=== PATIENT | male | born 1995 | race American Indian/Alaskan Native ===

== ENCOUNTER 2019-05-22 02:16 | Inpatient (IN) | payer SELFPAY ==
[~2019-05-22] VITALS: Ht 182.9 cm; Wt 111.1 kg
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
--- NOTE | 2019-05-22 06:08 | NUR ---
PT ARRIVED IN CCU AT 0500. COLLEGE DIRECTOR WAS RECOVERING PT HERE IN UNIT. PT AT THAT TIME AND AT THIS TIME IS STILL VERY SEDATED. V/S ARE WDL AND PT IS ON RA. ALL LOBES ARE DIMINISHED, ABD SOUNDS ARE VERY HYPOACTIVE, DRESSINGS ARE C/D/I, PT HAS SOME GENERALIZED BILATERAL ARM EDEMA. PT ALSO HAS SEVERAL BLISTERS PRESENT ON BOTH INNER HANDS. COLLEGE DIRECTOR NOEMI LEFT AT 0600, PT IS ABLE TO MAINTAIN HIS OWN AIRWAY. URINE TOX SCREEN NEEDS TO BE OBTAINED ONCE PT VOIDS. WILL CONTINUE TO MONITOR.
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
--- NOTE | 2019-05-22 07:30 | NUR ---
report recieved. PATIENT IS ASLEEP IN BED, NO DISTRESS NOTED.
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
--- NOTE | 2019-05-22 08:18 | NUR ---
Patient takes no chronic medications
--- NOTE | 2019-05-22 08:30 | NUR ---
DETECTIVES HERE TO INTERVIEW PATIENT.
--- NOTE | 2019-05-22 09:20 | NUR ---
ABD DRESSING REDRESSED WITH NON-ADHERENT PAD, 4X4, ABD. RIGHT ARM DRESSING REDRESSED WITH NON-ADHERENT DRESSING AND GAUZE. INCISION SITES ALL DRY AND INTACT, NO DRAINAGE NOTED.
--- NOTE | 2019-05-22 09:50 | NUR ---
DR. DAUGHERTY UPDATED ON PATIENT. PATIENT WAS TO BE MED-SURG PATIENT FROM ADMISSION. PATIENT WILL BE TRANSFERRED TO MED-SURG TODAY. MONITOR DC'D.
--- NOTE | 2019-05-22 10:00 | NUR ---
ATE YOGART. AMALIA NAUSEA.
--- NOTE | 2019-05-22 11:25 | NUR ---
SLEEPING, NO DISTRESS NOTED.
--- NOTE | 2019-05-22 11:55 | NUR ---
AMBULATED TO BR. STABLE ON FEET.
--- NOTE | 2019-05-22 12:10 | NUR ---
NORCO 2 GIVEN FOR C/O POST-OP ABD DISCOMFORT.
--- NOTE | 2019-05-22 13:40 | NUR ---
REPORT TO MED-SURG.
--- NOTE | 2019-05-22 13:50 | NUR ---
ambulated to med-surg [facility] by RN.
--- NOTE | 2019-05-22 14:00 | NUR ---
PATIENT AMBULATED FROM CCU TO UT WITH SBA. LR RUNNING AT 85 MLS/HR. ASSESSMENT COMPLETE. ABDOMINAL DRESSINGS ARE CLEAN, DRY, AND INTACT. VISUALIZED DRESSING ON UPPER RIGHT ARM, SUTURES IN PLACE. NO DRAINAGE OR DISCHARGE NOTED. PATIENT STATES PAIN OF 10/10 IN HIS ABDOMEN. PATIENT RECEIVING 5 MG NORCO Q4, NEXT DOSE DUE AT 1600.
--- NOTE | 2019-05-22 15:31 | NUR ---
FAMILY OF PATIENT IN TO VISIT. DISCUSSED SAFETY WITH FAMILY AND PATIENT AND NOT TO DISCUSS PATIENTS ADMISSION AT HOSPITAL TO FAMILY AND FRIENDS. PARENTS AND PATIENT AGREEABLE.
--- NOTE | 2019-05-22 16:28 | NUR ---
PATIENT STATES PAIN OF 7/10. 10 MG OF NORCO PROVIDED. PATIENT AMBULATES WITH ONE PERSON SBA TO TOILET WITH STEADY GAIT.
--- NOTE | 2019-05-22 18:28 | NUR ---
PATIENT AMBULATED TWICE AROUND UNIT. NO SOB OR LIGHTHEADEDNESS. DRESSINGS REMAIN CLEAN, DRY, AND INTACT. PATIENT AMBULATED BACK TO BED, SITTING IN HIGH FOWLERS POSITION. STATES HE FEELS HOT. NO TEMPERATURE, COLD CLOTH GIVEN. PATIENT DENIES ANY FURTHER NEEDS AT THIS TIME, CALL LIGHT WITHIN REACH.
--- NOTE | 2019-05-22 20:00 | NUR ---
RECEIVED REPORT FROM VERNELL HANNA. pt RESTING IN BED. NO REQUESTS AT THIS TIME. WHITEBOARD UPDATED. ASSESSMENT DONE. PAIN TOLERABLE 10/18. DRESSING CDI. VITALS DONE. WILL COME BACK TO AMBULATE pt LATER IN SHIFT. CALL LIGHT WITHIN REACH.
--- NOTE | 2019-05-22 21:47 | NUR ---
CALL LIGHT ON. pt UP TO TOILET TO VOID. AMBULATED AROUND UNIT X2. DENIES PASSING GAS AT THIS TIME. SETTLED IN BED. POSSESSIONS AND CALL LIGHT WITHIN REACH. NO FURTHER REQUESTS AT THIS TIME.
--- NOTE | 2019-05-22 23:52 | NUR ---
ROUNDED ON pt. RESTING WITH EYES CLOSED, RESPIRATIONS REGULAR AND UNLABORED. CALL LIGHT WITHIN REACH.
--- NOTE | 2019-05-23 02:11 | NUR ---
pt ASLEEP, WOKE WITH GENTLE SHAKE AND VOICE. ASSESSMENT DONE. DRESSINGS CDI. STITCHES ON RIGHT ARM WELL APPROXIMATED. REPORTED 8/10 PAIN. PRN MED GIVEN (SEE NOV). EDUCATED ON WHEN TO CALL FOR PAIN MANAGEMENT. pt REFUSED VOIDING AT THIS TIME. SL PER ORDER ON NOV. NO FURTHER REQUESTS. CALL LIGHT WITHIN REACH.
--- NOTE | 2019-05-23 03:49 | NUR ---
ROUNDED ON pt. RESTING WITH EYES CLOSED, RESPIRATIONS REGULAR AND UNLABORED. APPROVED VISITORS HAVE LEFT. CALL LIGHT WITHIN REACH.
--- NOTE | 2019-05-23 06:50 | NUR ---
AWOKE pt. VITALS AND I&O RECORDED. pt REPORTED 5/10 PAIN. PRN MED GIVEN (SEE MAR). BOWEL TONES ACTIVE. MD IN ROOM. REDRESSED ABD WOUNDS WITH NON ADHERENT AND MEDIPORE TAPE. RIGHT ARM LAC OPEN TO AIR. EDGES WELL APPROXIMATED.
--- NOTE | 2019-05-23 06:56 | NUR ---
pt RESTED ON AND OFF DURING SHIFT. VISITORS EARLY IN THE MORNING, RESTRICTED; MUST NOTIFY pt AND GET APPROVAL PRIOR TO ALLOWING VISITORS. TOLERATING FULL LIQUID DIET. IV SL. DRESSING ON MIDLINE INCISION AND LAC ON ABD. LAC ON RIGHT ARM OPEN TO AIR, EDGES WELL APPROXIMATED. PAIN CONTROLLED WITH PRN MEDS X2. AMBULATED X1. USES CALL LIGHT APPROPRIATLEY.
--- NOTE | 2019-05-23 07:39 | NUR ---
0723: BEDSIDE REPORT RECIEVED FROM ROSANNA MATT. THE PT IS LYING IN HIS BED AND STATES HIS PAIN IS UNDER GOOD CONTROL. ABD DRESSINGS CDI, RIGHT ARM WOUND IS CDI. SCD'S ARE ON AND RUNNING. CALL HALL WITHIN REACH.
--- NOTE | 2019-05-23 07:55 | NUR ---
WBC'S ARE ELEVATED AND A DR CORADO CALLED AND A MESSAGE WAS LEFT FOR HIM TO CALL ME BACK TO NOTIFY HIM OF THIS.
--- NOTE | 2019-05-23 08:07 | NUR ---
PT STATES HIS ABD PAIN IS A 5/10 WHICH HE STATES IS ACCEPTABLE TO HIM AT THIS TIME. PT FELL TO SLEEP DURRING THE NURSING ASSESSMENT. WBC'S ARE 17.5 THIS AM AND A MESSAGE WAS LEFT FOR HIS MD TO NOTIFY HIM OF THIS. PT'S TEMP IS CURRENTLY 98.2. PT GIVEN AN IS AND INSTRUCTED IN IT'S USE.
--- NOTE | 2019-05-23 10:31 | NUR ---
Pt ambulated in the halls and walked 2 laps and he tolerated it well. He states his abd pain remains at a 5 which is accpetable and unchanged from what it was prior to his walk.
--- NOTE | 2019-05-23 13:50 | NUR ---
DR CORADO IS AWARE OF THE WBC COUNT AND HAS SEEN THE PT.
--- NOTE | 2019-05-23 13:51 | NUR ---
PT WAS SLEEPING WHEN I ARRIVED TO THE ROOM AND HE AWOKE TO VOICE AND STATES HIS PAIN IS A 5/10 WHICH HE STATES IS ACCEPTABLE TO HIM. SEE ASSESSMENT. DRESSING/PUNCTURES REMAIN CDI.
--- NOTE | 2019-05-23 14:18 | NUR ---
PT SLEEPING SOUNDLY, NO NEEDS AT THIS TIME.
--- NOTE | 2019-05-23 16:05 | NUR ---
PT SLEEPING AT THIS TIME, CALL HALL WITHIN REACH.
--- NOTE | 2019-05-23 17:54 | NUR ---
TEMP 99.9. PT ENCOUARGED TO DEEP BREATH AND COUGH AND US HIS IS WHICH HE IS DOING AT THIS TIME. AMBULATION ALSO ENCOUARGED AND THE PT TAKEN FOR A WALK.
--- NOTE | 2019-05-23 18:10 | NUR ---
Pt ambulated two laps in the halls and was steady on his feet.
--- NOTE | 2019-05-23 18:47 | NUR ---
TEMP 100.7 AFTER WALKING AND USING HIS IS. DR CORADO CALLED AND NOTIFIED WITH NEW ORDERS GIVEN, SEE EMAR.
--- NOTE | 2019-05-23 19:10 | NUR ---
REPORT RECEIVED FROM OFFGOING RN. RN REPORTS THAT PT DOING WELL, TOLERATED DINNER WELL.
--- NOTE | 2019-05-23 22:30 | NUR ---
PT UTILIZES CALL LIGHT, REQUESTS TO USE THE BATHROOM. PT UP AND BACK TO BED WITH SBA. TOLERATED WELL. PT REPORTS THAT PAIN IS TOLERABLE, RATES 4/10. PT DENIES NAUSEA OR SOB. PT ASSESSMENT COMPLETE. ABDOMINAL WOUNDS AND INCISIONS COVERED, DRESSING C/D/I. BT'S ACTIVE, ABD TENDER TO PALPATION, PT REPORTS MILD DISTENSION. PT REPORTS PASSING FLATUS OCCASIONALLY, LAST BM 05/21. PT THERMOSTAT TURNED DOWN PER REQUEST, BREAK TAKEN FROM SCDS. PT DEMONSTRATES APPROPRIATE IS USE. PT DENIES FURTHER NEEDS AT THIS TIME. CALL LIGHT WITHIN [facility].
--- NOTE | 2019-05-24 01:06 | NUR ---
PT RESTING IN BED WITH EYES CLOSED. RESPIRATIONS EVEN AND UNLABORED. PT DOES NOT WAKE WHEN PALLIATIVE CARE NURSE OPENS THE DOOR. APPEARS TO BE SLEEPING. CALL LIGHT WITHIN REACH.
--- NOTE | 2019-05-24 03:58 | NUR ---
PT ASSESSMENT COMPLETE. PT RATES PAIN 4/10, UNCHANGED FROM PREVIOUS, STATES THIS IS TOLERABLE. DENIES SOB AND NAUSEA. BT'S ACTIVE. WOUNDS TO PT'S ABD COVERED, DRESSING C/D/I. PT REPORTS MILD ABD TENDERNESS AND DISTENSION. PT DENIES FURTHER NEEDS AT THIS TIME. CALL LIGHT WITHIN REACH.
--- NOTE | 2019-05-24 09:10 | NUR ---
PT SITTING UP IN BED. ATE ALL OF BREAKFAST GIOVANI WELL. PT DENIES PAIN AT THIS TIME, MEDICATED WITH SCHEDULED MOTRIN. PT DENIES NAUSEA. REPORTS FEELING NEED TO HAV BM BUT "SCARED IT WILL BE PAINFUL". RECIEVED ORDER FOR MOM FROM DR. CORADO. DRESSINGS REMOVED BY DR. CORADO. 3 ABD INCISIONS NOTED. MIDLINE AND TWO SMALLER SITES APPROX 1-2 IN NOTED, WELL APPROXIMATED, JIM IN PLACE. NO REDNESS, DRAINAGE, OR INFLAMMATION NOTED. PT EDUCATED ON POC, PLAN FOR SHOWER AND AMB TODAY. PT AGREEABLE, CALL LIGHT WITHIN REACH.
--- NOTE | 2019-05-24 10:11 | NUR ---
PT UP TO SHOWER INDEPENDENLTLY. LINENS CHANGED.
--- NOTE | 2019-05-24 10:30 | NUR ---
PATIENT UP IN SHOWER. DISCUSSED WITH STAFF TO CALL ME IF HE HAS ANY QUESTIONS OR CONCERNS.
--- NOTE | 2019-05-24 10:45 | NUR ---
PATIENT OUT OF SHOWER AND BACK TO CHAIR, IND. CALL LIGHT IN REACH. NO FURTHER NEEDS AT THIS TIME.
--- NOTE | 2019-05-24 11:00 | NUR ---
PT AMB HALLWAY AFTER SHOWER, GIOVANI WELL.
--- NOTE | 2019-05-24 13:45 | NUR ---
PT SITTING UP IN BED WATCHING TV. REPORTING 3/10 INCISIONAL PAIN. MEDICATED WITH SCHEDULED MOTRIN. DENIES FURTHER NEEDS OR CONCERNS. INDEPENDENT IN ROOM. CALL LIGHT WITHIN REACH.
--- NOTE | 2019-05-24 14:36 | NUR ---
PATIENT IN BED WATCHING TV. FRESH WATER GIVEN. CALL LIGHT IN REACH. NO FURTHER NEEDS AT THIS TIME.
--- NOTE | 2019-05-24 14:53 | NUR ---
PT AMBULATING IN HALLWAY-HAD PLEASANT VISIT. HE THANKED ME FOR CARING. WILL FOLLOW NEEDED
--- NOTE | 2019-05-24 16:18 | NUR ---
PT SITTING UP IN BED WATCHING TV. DENIES NEEDS OR CONCERNS AT THIS TIME. CALL LIGHT WITHIN REACH.
--- NOTE | 2019-05-24 18:17 | NUR ---
PATIENT IN BED WATCHING TV. FRESH WATER GIVEN. CALL LIGHT IN REACH. NO FURTHER NEEDS AT THIS TIME.
--- NOTE | 2019-05-24 19:22 | NUR ---
CHARGE NURSE REPORT RECEIVED. PT WITH NO NEEDS.
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
--- NOTE | 2019-05-24 20:27 | NUR ---
PT ASSESSMENT COMPLETE. PT SITTING IN BED WATCHING TV. STATES THAT PAIN IS "GOOD", SCHEDULED MOTRIN ADMINISTERED. PT DENIES NAUSEA AND SOB. BT'S ACTIVE. PT REPORTS ABD TEDNERNESS TO TOUCH. MILD DISTENSION NOTED. JIM PRESENT TO MIDLINE ABD AND RUQ X2, INCISIONS WELL APPROXIMATED, WITH NO DRAINAGE NOTED. LAC TO R UPPER ARM WASHER MACHINE WITH SUTURES PRSENT, WELL APROXIMATED, NO DRAINAGE NOTED. ICE WATER REFILLED, 7UP PROVIDED. PT DENIES FURTHER NEEDS AT THIS TIME. CALL LIGHT IN REACH.
--- NOTE | 2019-05-24 23:39 | NUR ---
PT RESTING IN BED WITH EYES CLOSED. RESPIRATIONS EVEN AND UNLABORED, DOES NOT WAKE WHILE COMPLAINT INVESTIGATIONS OFFICER IN DOORWAY. APPEARS TO BE SLEEPING. CALL LIGHT IN REACH.
--- NOTE | 2019-05-25 03:08 | NUR ---
PT RESTING IN BED WATCHING TV. PT ASSESSMENT COMPLETE. PT DENIES PAIN, NAUSEA, OR SOB. PT ASSESSMENT UNCHANGED FROM PREVIOUS. ICE WATER REFILLED PER PT REQUEST. PT DECLIENS FUTHER NEEDS AT THIS TIME. CALL LIGHT IN REACH.
--- NOTE | 2019-05-25 05:39 | NUR ---
PT RESTING IN BED WITH EYES CLOSED. RESPIRATIONS EVEN AND UNLABORED, APPEARS TO BE SLEEPING. CALL LIGHT IN REACH.
--- NOTE | 2019-05-25 05:56 | NUR ---
PT SLEPT WELL THIS SHIFT. PAIN WELL CONTROLLED WITH SCHEDLUED MOTRIN. NO SOB OR NAUSEA. MIDLINE INCISION, PUNCTURE WOUNDS X 2, AND LAC TO RUE KELLY. JIM X 23 PRESENT TO MIDLINE, JIM PRESENT TO BOTH PUNCTURE WOUNDS, SUTURES TO LAC. BT'S ACTIVE. ABD NONTENDER. NO DISTENSION NOTED. NO BM. PT PASSING FLATUS. UO QS. PT IND IN ROOM. IV SL.
[2019-05-25] MEDS ORDERED: TYLENOL325 MG PO (08:33)
[2019-05-25] MEDS ORDERED: IBUPROFEN600 MG PO (08:33)
--- NOTE | 2019-05-25 08:53 | NUR ---
TALKED TO PATIENT ABOUT DISCHARGE FOLLOW-UP APPOINTMENT, CALLED HIS MOM FOR HIM AND WILL WAIT TO SEE WHERE HE WOULD LIKE TO FOLLOW UP
--- NOTE | 2019-05-25 10:00 | NUR ---
PT SITTING UP IN BED AWAKE. AT ALL OF BREAKFAST, GIOVANI WELL. PT DENIES PAIN OR OTHER CONCERNS AT THIS TIME. DC INSTRUCTIONS REVIEWED WITH PT, ALL QUESTIONS ANSWERED. PT INDEPENDENT IN ROOM.
--- NOTE | 2019-05-25 12:47 | NUR ---
PT ATE LUNCH. SITTING IN BED. DENIES NEEDS OR CONCERNS AT THIS TIME. WAITING FOR RIDE. CALL LIGHT WITHIN REACH.
--- NOTE | 2019-05-25 14:12 | NUR ---
PT WAITING FOR HIS MOTHER TO ARRIVE FROM [place] TO TAKE HIM HOME FOLLOWING DC. HE DIDNOT ORDER LUNCH, STATED HE WAS HUNGRY. KITCHEN STAFF WAS JUST OUTSIDE AND CAME IN AND HELPED PT WITH ORDER. 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 PT SMILED AND THANKED ME FOR STOPPING BY. WILL FOLLOW NEEDED
== END 2019-05-25 13:30 | disposition home or self-care (01) | DRG 357 ==
LOC: ED 02:16 → CCU 02:25 → MS 02:25 → EDBD 05-24 08:57 → MS 05-24 08:57
PROVIDERS: ADMIT Surgery
PROC: 0JQD0ZZ Repair Right Upper Arm Subcutaneous Tissue and Fascia, Open Approach (ICD-10-PCS; 2019-05-22)
PROC: 30233N1 Transfusion of Nonautologous Red Blood Cells into Peripheral Vein, Percutaneous Approach (ICD-10-PCS; 2019-05-22)
PROC: 0DQW0ZZ Repair Peritoneum, Open Approach (ICD-10-PCS; principal; 2019-05-22 02:51)
PROC: 0JQ80ZZ Repair Abdomen Subcutaneous Tissue and Fascia, Open Approach (ICD-10-PCS; 2019-05-22 02:51)
DX: S31.63 Puncture wound without foreign body of abdominal wall with penetration into peritoneal cavity (principal); R57.9 Shock, unspecified; S31.133A Puncture wound of abdominal wall without foreign body, right lower quadrant without penetration into peritoneal cavity, initial encounter; S41.131A Puncture wound without foreign body of right upper arm, initial encounter; F10.129 Alcohol abuse with intoxication, unspecified; X99.9XXA Assault by unspecified sharp object, initial encounter; Y92.89 Other specified places as the place of occurrence of the external cause; Y90.8 Blood alcohol level of 240 mg/100 ml or more
CPT/HCPCS: 00790; 36415; 36430; 71045; 80053; 82150; 82550; 83690; 85025; 86850; 86900; 86901; 86920; 90714; 99284-25; G0480; J0330; J1100; J1170; J1885; J2405; J2543; J2704; J7030; J7060; J7120; P9016